=== PATIENT | male | born 1935 | race African-American/Black ===

== ENCOUNTER 2023-05-29 04:55 | Day surgery (SDC) | payer OTHER ==
[2023-05-09 13:57] VITALS: BMI 28.1
[2023-05-29] MEDS ORDERED: PROPOFOL 20 ML ONE ×3 (13:03→13:56)
[2023-05-29] MEDS ORDERED: MIDAZOLAM HCL 2 MG/2 ML SINGLE DOSE VIAL ONE (13:03)
[2023-05-29] MEDS ORDERED: ceFAZolin SODIUM 1 GM VIAL IVPB ONE (13:47)
[2023-05-29] MEDS ORDERED: ONDANSETRON 4 MG/2 ML VIAL IVPUSH PRN (14:21)
[2023-05-29] MEDS ORDERED: LACTATED RINGERS SOLUTION 1,000 ML IV SCH (14:30)
[2023-05-29 16:01] VITALS: RESP 20; TEMP 98
[2023-05-29 17:05] VITALS: BP 137/72; PULSE 69
== END 2023-05-29 16:50 | disposition home or self-care (01) ==
LOC: JASU-SURG 04:55
PROVIDERS: ATTEND Urology
PROC: 0TBC8ZZ Excision of Bladder Neck, Via Natural or Artificial Opening Endoscopic (ICD-10-PCS; principal; 2023-05-29 13:00)
DX: N32.0 Bladder-neck obstruction (principal); N39.498 Other specified urinary incontinence; Z92.3 Personal history of irradiation; Z85.46 Personal history of malignant neoplasm of prostate
CPT/HCPCS: 82962; 88307-TC; 88341-TC; 88342-TC; 94760

== ENCOUNTER 2023-08-26 04:22 | Day surgery (SDC) | payer OTHER ==
[2023-08-21 15:52] VITALS: BMI 28.1
[2023-08-26] MEDS ORDERED: PROPOFOL 20 ML ONE (12:02)
[2023-08-26] MEDS ORDERED: FENTANYL CITRATE/PF 50 MCG/ML VIAL ONE (12:02)
[2023-08-26] MEDS ORDERED: ceFAZolin SODIUM 1 GM VIAL ONE (12:04)
[2023-08-26] MEDS ORDERED: LIDOCAINE HCL/PF 2% SDV 5ML VIAL ONE (12:04)
[2023-08-26] MEDS ORDERED: SODIUM CHLORIDE 0.9% P/F 10 ML VIAL IJ ONE (12:04)
[2023-08-26] MEDS ORDERED: GENTAMICIN SO4 80 MG/2 ML VIAL ONE (12:30)
[2023-08-26] MEDS ORDERED: VANCOMYCIN 1,000 MG VIAL (RESTRICTED TO ID ONLY) ONE (12:30)
[2023-08-26] MEDS ORDERED: LIDOCAINE HCL 1%, 10 MG/ML (20ML VIAL) ONE (12:31)
[2023-08-26] MEDS ORDERED: BUPIVACAINE HCL/PF 0.5% (5MG/ML) 10 ML VIAL ONE (12:32)
[2023-08-26] MEDS: VANCOMYCIN 1,000 MG VIAL (RESTRICTED TO ID ONLY) IVPB ONE (12:49)
[2023-08-26] MEDS: GENTAMICIN SO4 80 MG/2 ML VIAL IVPB ONE (13:08)
[2023-08-26] MEDS: ceFAZolin SODIUM 1 GM VIAL IVPB ONE (13:09)
[2023-08-26] MEDS ORDERED: ONDANSETRON 4 MG/2 ML VIAL ONE (13:19)
[2023-08-26] MEDS ORDERED: PROMETHAZINE HCL 25 MG/1 ML VIAL IVPB PRN (13:57)
[2023-08-26] MEDS ORDERED: ONDANSETRON 4 MG/2 ML VIAL IVPUSH PRN (13:57)
[2023-08-26] MEDS ORDERED: LACTATED RINGERS SOLUTION 1,000 ML IV SCH (14:00)
[2023-08-26 15:35] VITALS: BP 161/60; PULSE 68; RESP 20; TEMP 97.1
== END 2023-08-26 16:49 | disposition home or self-care (01) ==
LOC: JASU-SURG 04:22
PROVIDERS: ATTEND Urology
PROC: 0T7D8ZZ Dilation of Urethra, Via Natural or Artificial Opening Endoscopic (ICD-10-PCS; principal; 2023-08-26 12:30)
DX: R32 Unspecified urinary incontinence (principal); N35.919 Unspecified urethral stricture, male, unspecified site
CPT/HCPCS: 82962; 94760